=== PATIENT | female | born 1945 | race Caucasian/White ===

== ENCOUNTER 2020-02-08 10:40 | Inpatient (IN) | payer MEDICARE, OTHER ==
[~2020-02-08] VITALS: Ht 157.5 cm; Wt 50.7 kg
--- NOTE | ~2020-02-08 | OP ---
PATIENT NAME: CHARLES MOORE MEDICAL RECORD: [id number] :45 LOCATION:D.M2 D.2108 ADMISSION DATE:02/08/20 SURGEON: MARGARET MURRIETA MD DATE OF OPERATION: 02/10/2020 PREOPERATIVE DIAGNOSES: 1. End-stage renal disease without access for hemodialysis. 2. Anemia. POSTOPERATIVE DIAGNOSES: 1. End-stage renal disease without access for hemodialysis. 2. Anemia. PROCEDURES: 1. Insertion of right internal jugular HemoSplit catheter (tunneled cuffed dual-lumen hemodialysis catheter) under fluoroscopic guidance. 2. Immediate surgeon interpretation of the fluoroscopic images. SURGEON: Margaret Murrieta MD IRONWORKER WIRE FENCE ERECTOR: None. BLOOD LOSS: Minimal. ANESTHESIA: General. COMPLICATIONS: None. The risks, possible complications and alternatives to the procedure were explained to the patient. She elects to proceed. The discussion specifically included, but was not limited to, bleeding requiring emergency reoperation, infection, pneumothorax and great vessel injury. No radiologist was present for this procedure. Static fluoroscopic images were obtained and are interpreted by the surgeon. The surgeon interpretation of the radiographic images is dictated within the body of this operative note. OPERATIVE COURSE: The patient was conveyed the operating room electively on 02/10/2020. General anesthesia was induced by the anesthesia staff. The right neck and right chest were sterilely prepped and draped. Under ultrasonographic guidance, I percutaneously accessed the right internal jugular vein in an antegrade fashion. A guidewire passed easily. A skin incision was accomplished around the wire. A counterincision was accomplished in the right anterior superior infraclavicular chest. I tunneled a 19-cm HemoSplit catheter from the chest incision to the neck incision. Over the wire, I advanced dilators. I dilated up to a larger size. This was visualized under real time fluoroscopy. A dilator sheath was then advanced over the wire and this again was visualized under fluoroscopy. The dilator and wire were removed. The tips of the HemoSplit catheter was then advanced down through the sheath. The Peel-Away sheath was then removed. I then pulled back on the HemoSplit flange. Under fluoroscopy, there was no kinking or twisting of the HemoSplit catheter. The longest HemoSplit catheter tip appeared to be at the cavoatrial junction. There was no radiographic evidence of complication. No kinking or twisting of the HemoSplit catheter. OPERATIVE REPORT [id number] TAKEN,CHARLES NIEVES The neck incision was closed with interrupted intracuticular 3-0 Vicryls. The flange of the HemoSplit catheter was sutured to the underlying skin with 2-0 nylons. Both lumens of the HemoSplit catheter flushed easily and aspirated dark, nonpulsatile blood. I then topped off both lumens of the HemoSplit catheter with the appropriate amount of concentrated heparin. Sterile dressings were applied. The patient was then extubated and conveyed to post-anesthesia care unit where she was in stable condition. TRANSINT:[id number] Voice Confirmation ID: [id number] DOCUMENT ID: [id number] MARGARET MURRIETA MD CC: RAYSA DRAPER MD and MO RODRIGUEZ [id number] DICTATION DATE: 02/19/207 ANIMAL NUTRITIONIST: 02/19/20 1209 DIS IN 02/14/20 [facility] [address] [place] [address]
--- NOTE | 2020-02-08 11:30 | NUR ---
ARRIVES TO UNIT PER W/C, IV STARTED TO LFA WITH 1 STICK USING 20GA, ORDERS FOR 2 UNITS OF BLOOD
[2020-02-08 12:35] VITALS: BP 137/55
[2020-02-08] MEDS ORDERED: BAYER CHEWABLE81 MG PO (12:40)
[2020-02-08] MEDS ORDERED: TORSEMIDE10 MG (12:42)
[2020-02-08] MEDS ORDERED: JARDIANCE25 MG PO (12:43)
[2020-02-08] MEDS ORDERED: COREG12.5 MG PO (12:44)
[2020-02-08 12:46] VITALS: BP 137/55; BMI 19.6
[2020-02-08 12:50] VITALS: BP 150/57
[2020-02-08 15:07] LABS: BILIRUBIN NEGATIVE (NEGATIVE); GLUCOSE 250 mg/dL (NEGATIVE); KETONE NEGATIVE (NEGATIVE); NITRITE NEGATIVE (NEGATIVE); SPECIFIC GRAVITY 1.015 (1.005-1.020); UROBILINOGEN NORMAL (NORMAL)
[2020-02-08 15:08] LABS: BACTERIA FEW /hpf (NEGATIVE); EPITHELIAL CELLS 0-5 /hpf (0-5); RED CELLS - URINE 0-5 /hpf (0-5)
--- NOTE | 2020-02-08 15:11 | NUR ---
1ST UNIT OF BLOOD COMPLETED, XRAY AWARE
[2020-02-08 15:46] LABS: CREATININE - URINE 32.3 mg/dL (30-125); PRO/CRE RATIO URINE 5.8 mg/g; PROTEIN - URINE 188.4 mg/dL (0.0-11.9)
[2020-02-08 16:50] VITALS: BP 143/61
[2020-02-08 16:53] VITALS: BP 156/62
--- NOTE | 2020-02-08 17:14 | NUR ---
2ND UNIT OF BLOOD INFUSING, BAYRON WELL, CONT TO MONITOR
[2020-02-08 20:00] VITALS: BP 109/71
--- NOTE | 2020-02-08 20:00 | NUR ---
PATIENT RESTING IN BED. NO S/S OF ACUTE DISTRESS. NO C/O AT THIS TIME. PATIETN HAS LEFT FOREARM IV, SALINE LOC. IV IS PATENT WITHOUT REDNESS, SWELLING, OR TENDERNESS. PATIENT HAS TELEMETRY: 70 NORMAL SINUS. PATIENT IS UP WITH ASSIST TO THE BATHROOM. CALL LIGHT WITHIN REACH. WILL CONTINUE TO MONITOR.
[2020-02-09] VITALS (7 sets, daily range): BP systolic 125–171; BP diastolic 56–65; Ht 157.5 cm; Wt 50.7 kg
--- NOTE | 2020-02-09 00:52 | NUR ---
I have reviewed this patient and I concur with the Shift Assessment completed by the Licensed Practical Nurse today this shift.
[2020-02-09 06:50] LABS: ANION GAP 21.9 mmol/L (8-16); CARBON DIOXIDE 18.8 mmol/L (21.0-32.0); CREATININE - SERUM 6.6 mg/dL (0.6-1.3); PHOSPHOROUS 8.4 mg/dL (2.5-4.9); POTASSIUM - SERUM 4.7 mmol/L (3.5-5.1)
[2020-02-09 07:14] LABS: BASOPHILS 0.4 % (0-2); EOSINOPHILS 3.4 % (0-7); HEMATOCRIT 27.4 % (36.0-48.0); IMMATURE GRANULOCYTES 0.4 % (0-5); LYMPHOCYTES 9.7 % (15-50); MCHC 32.8 g/dL (31.0-37.0); MCV 91.3 fL (80.0-100.0); MEAN PLATELET VOLUME 9.3 fL (7.4-10.4); MONOCYTES 12.7 % (2-11); NEUTROPHILS 73.4 % (40-80); PLATELET COUNT 315 10x3/uL (130-400); RDW 16.3 % (11.5-14.5); WBC 6.8 10x3/uL (4.8-10.8)
--- NOTE | 2020-02-09 08:55 | NUR ---
SHE IS SETTING ON THE SIDE OF THE BED EATING BREAKFAST, HER IS AT THE BEDSIDE. THE BED ALARM IS ON AND THE CALL LIGHT WITHIN REACH.
--- NOTE | 2020-02-09 20:00 | NUR ---
PATIENT RESTING IN BED WATCHING TV. NO S/S OF ACUTE DISTRESS. NO C/O AT THIS TIME. PATIENT HAS A RIGHT FOREARM IV, SALINE LOC. IV IS PATENT WITHOUT REDNESS, SWELLING, OR TENDERNESS. PATIENT IS ON TELEMTRY: 69 NORMAL SINUS RYTHM. PATIENT IS UP WITH ASSIST TO THE BATHROOM. CALL LIGHT WITHIN REACH. BED ALARM ON. WILL CONTINUE TO MONITOR.
[2020-02-10] VITALS: BP 108/54; BP 131/67
--- NOTE | 2020-02-10 02:22 | NUR ---
I have reviewed this patient and I concur with the Shift Assessment completed by the Licensed Practical Nurse today this shift.
[2020-02-10 04:00] VITALS: BP 124/72
[2020-02-10 06:22] LABS: BASOPHILS 0.2 % (0-2); EOSINOPHILS 0.5 % (0-7); IMMATURE GRANULOCYTES 0.2 % (0-5); LYMPHOCYTES 9.5 % (15-50); MCH 29.8 pg (26.0-34.0); MCHC 32.6 g/dL (31.0-37.0); MCV 91.7 fL (80.0-100.0); MEAN PLATELET VOLUME 9.1 fL (7.4-10.4); MONOCYTES 9.9 % (2-11); NEUTROPHILS 79.7 % (40-80); PLATELET COUNT 331 10x3/uL (130-400); RDW 15.7 % (11.5-14.5); WBC 5.8 10x3/uL (4.8-10.8)
[2020-02-10 06:29] LABS: HEMATOCRIT 34.1 % (36.0-48.0); HEMOGLOBIN 11.1 g/dL (12-16); RBC 3.72 10x6/uL (4.00-5.40)
[2020-02-10 06:41] LABS: ANION GAP 18.9 mmol/L (8-16); CALCIUM 7.1 mg/dL (8.5-10.1); CARBON DIOXIDE 19.5 mmol/L (21.0-32.0); CREATININE - SERUM 6.7 mg/dL (0.6-1.3); POTASSIUM - SERUM 4.4 mmol/L (3.5-5.1)
--- NOTE | 2020-02-10 09:10 | NUR ---
RESTING IN BED, FAMILY IIN ROOM, NPO FOR SURGERY, CONT TO MONITOR
[2020-02-10 09:12] VITALS: BP 142/64
--- NOTE | 2020-02-10 10:38 | NUR ---
PT SKIN CLAMMY, SUGAR 45, 1/2 AMP D5 GIVEN AND SENT TO SURGERY, REPORT PASSED TO SURGERY STAFF
--- NOTE | 2020-02-10 10:45 | NUR ---
anesthesia accepted care of pt
--- NOTE | 2020-02-10 12:07 | NUR ---
DR ALVAREZ HERE TO SEE PT, DISCUSSED INR
[2020-02-10 13:06] VITALS: BP 130/57
--- NOTE | 2020-02-10 13:08 | NUR ---
ALERT AND OREINTED WITH DROWSINESS. O2 95 PERCENT ON ROOM Air DRESSING INTACT TO RIGHT UPPER CHEST WITH PRPESSURE APPLIED
[2020-02-10 15:00] VITALS: BP 119/57
--- NOTE | 2020-02-10 16:30 | NUR ---
PATIENT TAKEN TO DIALYSIS. STABLE AT THIS TIME WITH PRESSURE DRESSING TO HEMIPORT SITE TO RIGHT UPPER CHEST
[2020-02-10 20:00] VITALS: BP 144/58
--- NOTE | 2020-02-10 20:30 | NUR ---
PT BACK FROM DIALYSIS, PT DRSG TO RIGHT CHEST TRIALYSIS REINFORCED AT THIS TIME. SAND BAG PLACED ON RIGHT CHEST. PT RESP EVEN AND UNLABORED. NO DISTRESS NOTED, CL IN REACH, SR UP X 2.
[2020-02-11] VITALS: BP 133/54
[2020-02-11 04:00] VITALS: BP 137/63
--- NOTE | 2020-02-11 06:12 | NUR ---
I have reviewed this patient and I concur with the Shift Assessment completed by the Licensed Practical Nurse today this shift.
[2020-02-11 08:31] VITALS: BP 136/57
[2020-02-11 09:45] LABS: BASOPHILS 0.1 % (0-2); EOSINOPHILS 0 % (0-7); IMMATURE GRANULOCYTES 0.1 % (0-5); LYMPHOCYTES 6.2 % (15-50); MCH 29.4 pg (26.0-34.0); MCHC 31.5 g/dL (31.0-37.0); MCV 93.4 fL (80.0-100.0); MEAN PLATELET VOLUME 9.2 fL (7.4-10.4); MONOCYTES 8.7 % (2-11); NEUTROPHILS 84.9 % (40-80); PLATELET COUNT 306 10x3/uL (130-400); RDW 15.6 % (11.5-14.5); WBC 7.2 10x3/uL (4.8-10.8)
[2020-02-11 09:46] LABS: HEMATOCRIT 26.7 % (36.0-48.0); HEMOGLOBIN 8.4 g/dL (12-16); RBC 2.86 10x6/uL (4.00-5.40)
[2020-02-11 09:55] LABS: CALCIUM 7.3 mg/dL (8.5-10.1); POTASSIUM - SERUM 3.9 mmol/L (3.5-5.1)
[2020-02-11 09:57] LABS: CARBON DIOXIDE 26.9 mmol/L (21.0-32.0)
[2020-02-11 13:20] VITALS: BP 115/45
[2020-02-11 18:29] VITALS: BP 104/44
--- NOTE | 2020-02-11 20:10 | NUR ---
AWAKE,ALERT.COMPLIANTS OF MILD DISCOMFORT TO HEMOSPLINT AREA. TYLENOL GIVEN FOR RELIEF. SL TO RFA INTACT WITHOUT REDNESS OR EDEMA NOTED. DRESSING AROUND CHEST INTACT. CL IN REACH. ADRIENNE ALARM ON.
[2020-02-12 00:30] VITALS: BP 111/52
[2020-02-12 05:00] VITALS: BP 135/57
--- NOTE | 2020-02-12 06:07 | NUR ---
I have reviewed this patient and I concur with the Shift Assessment completed by the Licensed Practical Nurse today this shift.
--- NOTE | 2020-02-12 07:44 | NUR ---
REPORT RECIEVED, PT SITTING SEMI FOWLERS IN BED. RR EVEN AND UNLABORED ON RA. SHE HAS A R FA PIV THAT IS SL. SHE HAS A R CHEST HEMOSPLIT AND IS A RESERVE L ARM. HER R CHEST HEMOSPLIT IS WRAPED FROM THE BLEEDING THAT STARTED LAST NIGHT. BED LOCKED AND IN LOWEST POSITION, CALL LIGHT WITHIN REACH. WILL CTM
[2020-02-12 08:30] VITALS: BP 147/59
[2020-02-12 10:09] LABS: BASOPHILS 0.3 % (0-2); EOSINOPHILS 2.8 % (0-7); HEMATOCRIT 25.7 % (36.0-48.0); IMMATURE GRANULOCYTES 0.1 % (0-5); LYMPHOCYTES 10.6 % (15-50); MCH 29.4 pg (26.0-34.0); MCHC 31.1 g/dL (31.0-37.0); MCV 94.5 fL (80.0-100.0); MEAN PLATELET VOLUME 9.2 fL (7.4-10.4); NEUTROPHILS 74.2 % (40-80); PLATELET COUNT 281 10x3/uL (130-400); RBC 2.72 10x6/uL (4.00-5.40); RDW 15.6 % (11.5-14.5); WBC 7.3 10x3/uL (4.8-10.8)
[2020-02-12 10:18] LABS: ANION GAP 13.1 mmol/L (8-16); CALCIUM 7.2 mg/dL (8.5-10.1); CARBON DIOXIDE 26.8 mmol/L (21.0-32.0); CREATININE - SERUM 4.7 mg/dL (0.6-1.3); POTASSIUM - SERUM 3.9 mmol/L (3.5-5.1)
[2020-02-12 12:00] VITALS: BP 115/45; BP 139/54
--- NOTE | 2020-02-12 12:54 | NUR ---
Nutrition Follow-up: Pt reports good/fair appetite. States she ate ~50% of breakfast this AM but is not a big breakfast eater. Denies N/V, chewing/swallowing difficulties. Unsure of last BM. Noted plans for HD today. Diet: Renal ADA PO intake: 50-100% Wt: 107# (02/08) Labs noted: Na 134, K+ 3.9, Glu 110, Ca 7.2 Meds noted: Glucotrol, Pepcid, Zofran -Encourage PO intake and honor food preferences within diet restrictions. -Offer Nepro with meals. -Monitor wt. -RD following.
[2020-02-12 16:50] VITALS: BP 115/45
--- NOTE | 2020-02-12 17:57 | NUR ---
I have reviewed this patient and I concur with the Shift Assessment completed by the Licensed Practical Nurse today this shift.
--- NOTE | 2020-02-12 18:22 | NUR ---
PT RETURNED TO ROOM FROM DIALYSIS. WILL CTM
--- NOTE | 2020-02-12 19:39 | NUR ---
PT SITTING IN BED AWAKE ALERT AND ORIENTED x4. NO SIGNS OF DISTRESS NOTED. DYALYSIS NURSE IS AT BEDSIDE. IS ALSO AT BEDSIDE. CALL LIGHT AND OTHER PERSONAL ITEMS WITH INR EACH. WILL CONTIUE TO MNOITOR
[2020-02-12 20:00] VITALS: BP 150/54
[2020-02-13] VITALS (7 sets, daily range): BP systolic 126–151; BP diastolic 52–95
--- NOTE | 2020-02-13 00:20 | NUR ---
DOING ROUNDS PT SEEMS A LITTLE SLOW TO RESPONED. B/S TAKEN 40. PRN DEXTROSE 25 GIVEN VIA RIGHT WRIST IV. WILL CHECK BLOOD SUGAR AGAIN IN 5 MINS. RN IS AT BEDSIDE. WILL CONTINUE TO MONITOR
--- NOTE | 2020-02-13 00:31 | NUR ---
BLOOD SUGAR NOW 116. CRANBERY JUICE AND NIGHT SNACK GIVEN. WILL DO FREQUENT ROUNDS. CALL LIGHT AND OTHER PERSONAL ITEMS WITH IN REACH. WILL CONTINUE TO MONITOR
[2020-02-13 03:07] LABS: HEPATITIS C ANTIBODY 0.3 S/CO RAT (0.0-0.9)
--- NOTE | 2020-02-13 03:33 | NUR ---
PT LYING IN BED RESTING QUIETLY WITH EYES CLOSED. EASILY AWAKEN WITH VOICE STIMULATION. CALL LIGHT WITH IN REACH. WILL CONTINUE TO MONITOR
[2020-02-13 05:29] LABS: BASOPHILS 0.3 % (0-2); EOSINOPHILS 1.3 % (0-7); HEMATOCRIT 25.7 % (36.0-48.0); HEMOGLOBIN 7.9 g/dL (12-16); IMMATURE GRANULOCYTES 0.1 % (0-5); LYMPHOCYTES 8.8 % (15-50); MCHC 30.7 g/dL (31.0-37.0); MCV 94.5 fL (80.0-100.0); MONOCYTES 9.3 % (2-11); NEUTROPHILS 80.2 % (40-80); PLATELET COUNT 305 10x3/uL (130-400); RBC 2.72 10x6/uL (4.00-5.40); RDW 15.3 % (11.5-14.5); WBC 6.9 10x3/uL (4.8-10.8)
[2020-02-13 05:58] LABS: ANION GAP 11.1 mmol/L (8-16); CALCIUM 7.2 mg/dL (8.5-10.1); CARBON DIOXIDE 29.3 mmol/L (21.0-32.0); PHOSPHOROUS 4.4 mg/dL (2.5-4.9); POTASSIUM - SERUM 3.4 mmol/L (3.5-5.1)
[2020-02-13 06:01] LABS: CREATININE - SERUM 3.3 mg/dL (0.6-1.3)
--- NOTE | 2020-02-13 06:21 | NUR ---
I have reviewed this patient and I concur with the Shift Assessment completed by the Licensed Practical Nurse today this shift.
[2020-02-13] MEDS ORDERED: HYDRALAZINE HCL25 MG PO (06:48)
[2020-02-13] MEDS ORDERED: COZAAR25 MG PO (06:48)
[2020-02-13] MEDS ORDERED: PEPCID PO (06:49)
--- NOTE | 2020-02-13 07:41 | NUR ---
ALERT AND ORIENTED. LUNGS CLEAR BILATERALLY. HEART SOUNDS S1 AND S2 HEARD IN ALL BELLA. BOWEL SOUNDS ACTIVE X 4. IV TO RFA PATENT WITHOUT REDNESS. DRSG REMOVED FROM RIGHT HEMOSPLIT PER DR DRAPER FOR DISCHARGE THIS AM. NO BLEEDING NOTED. CLEANED AND NEW DRSG APPLIED PER STERILE PROCEDURE. TELEMETRY REMOVED AND RETURNED TO [facility] AT MONITORS. DENIES NEEDS. BED LOW. CALL GOVEA AND PERSONAL ITEMS IN REACH. WILL CONTINUE TO MONITOR.
--- NOTE | 2020-02-13 08:07 | MORECARE ---
CASE MANAGEMENT DISCHARGE SUMMARY PATIENT: CHARLES MOORE EZEQUIEL UNIT: [id number] ADM DATE: 02/08/20 AGE: 74 : 45 SEX: F ROOM/BED: D.2108 AUTHOR: CIARA THORNTON PHYSICIAN: REFERRING PHYSICIAN: MO RODRIGUEZ MD DATE OF SERVICE: 02/13/20 Discharge Plan Patient Name: CHARLES MOORE [facility] [facility] 1945 Planned Disposition: Anticipated Discharge Date: Discharge Date: Expected LOS: Initial Reviewer: [email or web address] Initial Review Date: 02/08/2020 Generated: 02/13/20 9:07 am Patient Name: CHARLES MOORE Page [phone] at 0807 All edits/amendments must be made on the electronic document DICTATION DATE: 02/13/20 0807 MOTION GRAPHICS DESIGNER: MARTHA 02/13/20 08 RPT#: [id number] DC DATE: STATUS: ADM IN [facility] [address] [place] [address] END OF REPORT
--- NOTE | 2020-02-13 08:20 | MORECARE ---
CASE MANAGEMENT DISCHARGE SUMMARY PATIENT: CHARLES MOORE UNIT: [id number] ADM DATE: 02/08/20 AGE: 74 : 45 SEX: F ROOM/BED: D.7299 AUTHOR: CIARA THORNTON PHYSICIAN: REFERRING PHYSICIAN: MO RODRIGUEZ MD DATE OF SERVICE: 02/13/20 Discharge Plan Patient Name: CHARLES MOORE Facility: [facility]:[place] : 1945 Planned Disposition: Anticipated Discharge Date: Discharge Date: Expected LOS: Initial Reviewer: [email or web address] Initial Review Date: 02/08/2020 Generated: 02/13/20 9:19 am Comments DCP- Discharge Planning Updated by [email or web address]: Maya Santoyo on 02/13/20 7:[address] Patient Name: CHARLES MOORE Admission Status: Elective Accout number: [id number] Admission Date: 02-08-2020 : 1945 Admission Diagnosis:OTHER FATIGUE Attending: MO RODRIGUEZ Current LOS: 5 Anticipated DC Date: Planned Disposition: Primary Insurance: MEDICARE A & B Discharge Planning Comments: CM met with patient to complete initial dc planning assessment. CM educated patient on the CM role and verbal consent given by patient to complete assessment. CM verified patient's address, phone number, and emergency contact phone numbers. Patient lives at home with her . at bedside during assessment. At discharge patient plans to return home and feels this is a safe discharge. CM discussed availability of home health, rehab services, and medical equipment. Patient denied known discharge needs at this time. [facility] declination signed for . CM met with patient to complete initial dc planning assessment. CM educated patient on the CM role and verbal consent given by patient to complete assessment. CM verified patient's address, phone number, and emergency contact phone numbers. Patient lives at with. At discharge patient plans to return and feels this is a safe discharge. CM discussed availability of home health, rehab services, and medical equipment. Patient denied known discharge needs at this time. Transportation provider at discharge will be . CM will continue to follow and will assist as needed with dc plans/needs. Transportation provider at discharge will be her . Pt will require an outpatient dialysis chair. Jalyn CM for dialysis is working on scheduling the OP chair time. Jalyn will call and provide the appointment times. CM will continue to follow and will assist as needed with dc plans/needs. Compensation Coordinator: Maya Santoyo Last DP export: 02/13/20 7:07 am Patient Name: CHARLES MOORE Page [phone] at 0820 All edits/amendments must be made on the electronic document DICTATION DATE: 02/13/20819 TRUCK DOCK MATERIAL MOVER: MARTHA 02/13/20819 RPT#: [id number] DC DATE: STATUS: ADM IN [facility] [address] [place] [address] END OF REPORT
--- NOTE | 2020-02-13 10:07 | NUR ---
SITTING IN CHAIR AT BEDSIDE. IN ROOM. DENIES NEEDS. WILL CONTINUE TO MONITOR.
[2020-02-13 10:48] LABS: % SATURATION 29 % (15-55); IRON 39 ug/dl (35-150); TOTAL IRON BIND CAPACITY 134 ug/dl (260-445); UNSAT IRON BIND CAPACITY 95 ug/dl (150-375)
[2020-02-13 11:34] LABS: THYROID STIMULATING HORMONE 1.76 uIU/mL (0.36-3.74)
--- NOTE | 2020-02-13 12:01 | NUR ---
PATIENT AND SPOUSE ARE MADE AWARE OF DISCHARGE HOLDUP PENDING HEPATITIS PANEL RESULTS. I ALSO CALLED THE DROP WIRER, SHANE AND MADE HER AWARE OF THIS. THIS INFORMATION CAME FROM VICKI PASCUAL.
[2020-02-13 12:10] LABS: ANTI-GLOMERULAR BASMENT MEMBRN 4 units (0-20)
--- NOTE | 2020-02-13 13:10 | NUR ---
3 OF LAB RESULTS BACK. I SENT THIS INFO TO VICKI ORTIZ. I PASSED THIS INFORMATION TO THE PATIENT, SPOUSE, AND PRIMARY NURSE - SOHEILA ESPINOZA.
[2020-02-13 15:11] LABS: ANA REFLEX - DIRECT Negative (Negative); ANCA - ANTIMYELOPEROXIDASE <9.0 U/mL (0.0-9.0); ANCA - ANTIPROTEINASE 3 <3.5 U/mL (0.0-3.5); ANCA - ATYPICAL <1:20 titer (Neg:<1:20); ANCA - CYTOPLASMIC <1:20 titer (Neg:<1:20); ANCA - PERINUCLEAR <1:20 titer (Neg:<1:20)
--- NOTE | 2020-02-13 15:34 | NUR ---
SPOKE WITH DR RODRIGUEZ TO NOTIFY THAT PATIENT'S HEP B ANTIBODY SCREEN IS STILL PENDING AND ASKED WHAT WOULD LIKE TO DO FAR DISCHARGE. STATES "THAT'S A DR DRAPER QUESTION. HE SAID SHE COULD DISCHARGE AND BE SEEN IN CLINIC TOMORROW. JUST WORK THAT OUT WITH THEM." DR DRAPER PAGED.
--- NOTE | 2020-02-13 15:41 | NUR ---
PATIENT AND MADE AWARE OF SITUATION AND THAT WAITING CALL BACK FROM [facility]. FRUSTRATED BUT UNDERSTANDING. DENY NEEDS. WILL CONTINUE TO MONITOR AND UPDATE.
--- NOTE | 2020-02-13 15:47 | NUR ---
VICKI PASCUAL TO CALL AND TALK TO BOTH THE PATIENT AND THE SPOUSE TO LET THEM KNOW THAT WE CAN NOT GET A CHAIR TIME UNTIL REST OF TESTS COME BACK.
--- NOTE | 2020-02-13 19:54 | NUR ---
PT SITTING UP IN IN CHAIR ALERT AND ORIENTED x4. NO SIGNS OR SYMPTOMS OF DISTRESS NOTED. RESPIRATIONS EVEN AND UNLABORED. PT HAS NO COMPLAINTS AT THIS TIME. CALL LIGHT AND OTHER PERSONAL ITEMS WITH IN REACH. WILL CONTINUE MONITOR
--- NOTE | 2020-02-14 01:39 | NUR ---
PT LYING IN BED AWAKE AND ALERT. PT HAS NO COMPLAINTS AT THIS TIME. BEDTIME SNACK PROVIDED. CALL LIGHT WITH IN REACH. WILL CONTINUE TO MONITOR
--- NOTE | 2020-02-14 04:04 | NUR ---
DURING ROUNDS FOUND THE PT WITH COLD SWEATS AND PT LARTHARGIC. CHECKED PT BLOOD SUGAR 35. PRN DEXTROSE GIVEN. PT IS STARTING TO WAKE. 2 CRANBERRY JUICES GIVEN AND SNACK. PT IS ALERT AND ORIENTED x4. RESPIRATIONS EVEN AND UNLABORED. PT HAS NO COMPLIANTS AT THIS TIME. CALL LIGHT AND OTHER PERSONAL ITEMS WITH INREACH. WILL DO FREQUENT ROUNDING ON PT. AUTOMOTIVE GLASS INSTALLER AT BEDSIDE. WILL CONTINUE TO MONITOR
[2020-02-14 04:34] VITALS: BP 190/72
[2020-02-14 06:53] LABS: ANION GAP 11.1 mmol/L (8-16); CARBON DIOXIDE 27.4 mmol/L (21.0-32.0); PHOSPHOROUS 4.7 mg/dL (2.5-4.9); POTASSIUM - SERUM 3.5 mmol/L (3.5-5.1)
[2020-02-14 06:56] LABS: BASOPHILS 0.2 % (0-2); EOSINOPHILS 2.5 % (0-7); HEMATOCRIT 22.6 % (36.0-48.0); IMMATURE GRANULOCYTES 0.6 % (0-5); LYMPHOCYTES 9.7 % (15-50); MCH 29.2 pg (26.0-34.0); MCHC 30.5 g/dL (31.0-37.0); MCV 95.8 fL (80.0-100.0); MEAN PLATELET VOLUME 9.1 fL (7.4-10.4); MONOCYTES 11.4 % (2-11); NEUTROPHILS 75.6 % (40-80); PLATELET COUNT 270 10x3/uL (130-400); RBC 2.36 10x6/uL (4.00-5.40); RDW 15.6 % (11.5-14.5); WBC 6.3 10x3/uL (4.8-10.8)
[2020-02-14 07:34] LABS: HEMOGLOBIN 6.9 g/dL (12-16)
--- NOTE | 2020-02-14 08:00 | NUR ---
PT SITTING UP IN BED, RR EVEN AND UNLABORED ON RA. DENIES NEEDS OR PAIN AT THIS TIME. CALL LIGHT WITHIN REACH. BED IN LOWEST POSITION. WILL CONTINE TO MONITOR.
--- NOTE | 2020-02-14 08:03 | HP ---
PATIENT: CHARLES MOORE MEDICAL RECORD: [id number] ACCOUNT: [id number] LOCATION:[address] : [birth year] ADMISSION DATE: 02/08/20 PCP: DEX BEGUM APRN HISTORY AND PHYSICAL EXAMINATION REASON FOR ADMISSION: Fatigue and shortness of breath. HISTORY OF PRESENT ILLNESS: The patient is a 74-year-old female who recently moved from [place] to [place] in October of this year. She has been followed by Dr. Gregg, hand tool filer there for chronic renal insufficiency and anemia of chronic disease. The patient apparently had deferred dialysis some time ago because her daughter was on a transplant list and she saw the complications she had with ports, etc., and therefore refused it. She states she is not sure what caused her renal failure. Nonetheless, she moved here, had not established with a doctor until she saw her ANGIOGRAPHY TECHNOLOGIST yesterday. She is noted to have hemoglobin of 6.8 and had been symptomatic with shortness of breath and fatigue. Her creatinine returned today at 6.8 as well. Reviewing labs from her prior physician in October, her BUN and creatinine were 104 and 5.65 with a gradual progression since the first of the year from 95 and 5.25. She has also exhibited anemia of chronic disease with low-iron saturation, low TIBC and low serum iron. Apparently has received EPO injections up until October. She also has a past history of non-STEMI myocardial infarction with 3-vessel PTCA and has been angina free since that time. She denies any history of GI bleeding or melena, but for nausea from her renal failure she has been taking Pepto-Bismol as well her stools would look dark at times. PAST MEDICAL HISTORY: AODM times 5 years, diabetic retinopathy, proteinuria with 915 mg of protein noted on last 24-hour urine, CAD post-non STEMI TN on 07/27/2016 to LAD, RCA and left main. Echo at that time showed an EF of 50% to 55% with grade I diastolic dysfunction, mild MR and mild TR. Essential hypertension, osteoarthritis, lumbar back pain. She also has history of MRSA infection in her foot, in 2011 history of herpes zoster, nonproliferative diabetic retinopathy. PAST SURGICAL HISTORY: She had foot surgery in 2018, had a benign mass removed from her breast remotely, coronary stents times 3 in 07/2016, had lumbar back surgery in 2011 and a cholecystectomy. FAMILY HISTORY: Unknown as she is adopted. 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 Lifelong nonsmoker, nondrinker. She has 3 children, 2 daughters, one with renal disease, on transplant list. ALLERGIES: PENICILLIN CAUSING RASH, SULFA CAUSING A RASH AND ALLERGY TO CONTRAST DYE. HOME MEDICATIONS: Which she has been partially noncompliant due to not having a provider in [place] are aspirin 81 mg a day, atorvastatin 80 mg in the evening, Coreg 12.5 mg 2 tablets b.i.d., clonidine 0.1 b.i.d. as needed for systolic over 170 or diastolic over 100, omeprazole 40 mg daily, nitroglycerin 0.4 sublingual p.r.n. chest pain, torsemide 100 mg p.o. daily, Colace 100 mg p.o. daily p.r.n., Glipizide XL 10 mg p.o. b.i.d., hydralazine 25 mg p.o. with food t.i.d., losartan 25 mg p.o. daily, methocarbamol 750 mg 2 tablets t.i.d. p.r.n. muscle spasm and low back, orphenadrine citrate ER 100 mg tablet extended release twice HISTORY AND PHYSICAL [id number] TAKEN,CHARLES EZEQUIEL daily p.r.n., Brilinta 60 mg tablets b.i.d. REVIEW OF SYSTEMS: GENERAL: She has been fatigued with poor appetite and mild nausea, some weight loss. HEENT: No recent visual change, sinus congestion, sore throat. RESPIRATORY: Mild short of breath on exertion. No cough or congestion or sputum production. CARDIAC: No exertional chest pain, claudication or edema. She has had exertional shortness of breath. GASTROINTESTINAL: She had nausea without vomiting, change in stools or blood per rectum. No history of peptic ulcer disease. History of cholecystectomy. GENITOURINARY: No incontinence or vaginal bleeding. Denies dysuria. History of recurrent UTIs. MUSCULOSKELETAL: Chronic lumbago without sciatica. INTEGUMENT: No recent rash or itching. PSYCHIATRIC: Denies depressed mood. NEUROLOGIC: No history of seizures, motor deficits or stroke. Carotid Doppler was negative in 2019. PHYSICAL EXAMINATION: GENERAL: The patient is alert, thin female in no acute distress. VITAL SIGNS: Her height is 5 feet 2 inches, weight 107.8 pounds, BMI is 19.7, sats 99% on room air, blood pressure 158/78, heart rate of 72 and regular. GENERAL: Alert and oriented. The patient is wearing a wig. EYES: Clear. Pupils reactive. Oropharynx shows she is missing several maxillary teeth on the right. NECK: No bruits or masses. CHEST: Clear with distant breath sounds. No wheeze, no rales. CARDIOVASCULAR: Regular rate and rhythm, without murmur. PMI is appropriate. ABDOMEN: Thin, soft, nontender. No organomegaly or bruits. EXTREMITIES: No CC&E. NEUROLOGICAL: Oriented to person, place, and time. Cranial nerves are intact. She has slight decreased sensation to touch in bottoms of both feet. PSYCHIATRIC: The patient's mood is appropriate and upbeat. OFFICE LABORATORY DATA: Shows a white count of 5700 with a normal diff, platelet count is 315,000, H&H of 6.7 and 21.2 respectively. CMP with glucose of 106, sodium 134, BUN of 96, creatinine of 6.68, GFR of 6.4. Cholesterol is normal. A1c is pending. Her history is that of having a hemoglobin in the mid-6 range. X-rays are currently pending, renal ultrasound and chest x-ray. ASSESSMENT: 1. Symptomatic anemia of chronic disease due to noncompliance. 2. Chronic renal insufficiency, stage V, the patient has refused dialysis refused dialysis in the past. 3. Essential hypertension. 4. Diabetic retinopathy. 5. Proteinuria. 6. Chronic low back pain. 7. History of atherosclerotic heart disease post non-ST segment elevation myocardial infarction in 2019 with 3-vessel coronary artery disease successfully stented. 8. Gastroesophageal reflux disease. HISTORY AND PHYSICAL [id number] TAKEN,CHARLES NIEVES PLAN: The patient will be admitted for transfusion, renal consult, renal ultrasound. We will attempt to convince the patient to consider dialysis. TRANSINT:[id number] Voice Confirmation ID: [id number] DOCUMENT ID: [id number] MO RODRIGUEZ MD at 0803 CC: [id number] DICTATION DATE: 02/08/20 1330 JEWELRY BEARING MAKER: 02/08/20 3903 ADM IN [facility] [address] [place] [id number]
[2020-02-14 09:00] VITALS: BP 157/61
--- NOTE | 2020-02-14 11:29 | MORECARE ---
CASE MANAGEMENT DISCHARGE SUMMARY PATIENT: CHARLES MOORE UNIT: [id number] ADM DATE: 02/08/20 AGE: 74 : 45 SEX: F ROOM/BED: D.2543 AUTHOR: HILLARY,DOC PHYSICIAN: REFERRING PHYSICIAN: MO RODRIGUEZ MD DATE OF SERVICE: 02/14/20 Discharge Plan Patient Name: CHARLES MOORE Facility: [facility]:[place] : 1945 Planned Disposition: Anticipated Discharge Date: Discharge Date: Expected LOS: Initial Reviewer: [email or web address] Initial Review Date: 02/08/2020 Generated: 02/14/20 12:29 pm Comments DCP- Discharge Planning Updated by [email or web address]: Snow Goins on 02/14/20 10:[address] Faxed Hepatitis antibody to Jalyn Ayan @[phone]. DCP- Discharge Planning Updated by [email or web address]: Maya Santoyo on 02/13/20 7:[address] Patient Name: CHARLES MOORE Admission Status: Elective Accout number: [id number] Admission Date: 02-08-2020 : 1945 Admission Diagnosis:OTHER FATIGUE Attending: MO RODRIGUEZ Current LOS: 5 Anticipated DC Date: Planned Disposition: Primary Insurance: MEDICARE A & B Discharge Planning Comments: CM met with patient to complete initial dc planning assessment. CM educated patient on the CM role and verbal consent given by patient to complete assessment. CM verified patient's address, phone number, and emergency contact phone numbers. Patient lives at home with her . at bedside during assessment. At discharge patient plans to return home and feels this is a safe discharge. CM discussed availability of home health, rehab services, and medical equipment. Patient denied known discharge needs at this time. [facility] declination signed for . CM met with patient to complete initial dc planning assessment. CM educated patient on the CM role and verbal consent given by patient to complete assessment. CM verified patient's address, phone number, and emergency contact phone numbers. Patient lives at with. At discharge patient plans to return and feels this is a safe discharge. CM discussed availability of home health, rehab services, and medical equipment. Patient denied known discharge needs at this time. Transportation provider at discharge will be . CM will continue to follow and will assist as needed with dc plans/needs. Transportation provider at discharge will be her . Pt will require an outpatient dialysis chair. Jalyn PATTEN for dialysis is working on scheduling the OP chair time. Jalyn will call and provide the appointment times. CM will continue to follow and will assist as needed with dc plans/needs. Director Of Emergency Nursing: Maya Santoyo Last DP export: 02/13/20 7:20 am Patient Name: CHARLES MOORE Page [phone] at 1129 All edits/amendments must be made on the electronic document DICTATION DATE: 02/14/20 112 EDI CONSULTANT: MARTHA 02/14/20 1129 RPT#: [id number] DC DATE: STATUS: ADM IN [facility] [address] [place] [address] END OF REPORT
[2020-02-14 15:11] LABS: ERYTHROPOIETIN 7.6 mIU/mL (2.6-18.5)
--- NOTE | 2020-02-14 15:19 | NUR ---
I RECEIVED PHONE CALL FROM EARLINE SAAB WHO STATES WE NEED OKAY FROM DR VAZQUEZ FOR D/C AND IF ANY NEED FOR OUTPATIENT FOLLOW UP. SHE STATES NO FOLLOW UP IS NEEDED AND DIALYSIS CAN FOLLOW FOR TRANSFUSION WITH DIALYSIS. I CALLED [facility] AND TOLD HER THIS AND SHE SAID PATIENT CAN GO. I CALLED DR RODRIGUEZ OFFICE FOR OKAY FOR DISCHARGE, NEW ORDERS RECEIVED. I CALLED VICKI WITH [facility] AND LET HER KNOW OF ALL THIS INFORMATION. SHE IS FAX US A CHAIR TIME FOR DISCHARGE.
[2020-02-14 15:43] VITALS: BP 159/44
--- NOTE | 2020-02-14 15:55 | NUR ---
1 UNIT PRBC STARTED. WS WNL. LINE IS PATENT.
--- NOTE | 2020-02-14 15:56 | NUR ---
I have reviewed this patient and I concur with the Shift Assessment completed by the Licensed Practical Nurse today this shift.
--- NOTE | 2020-02-14 16:00 | NUR ---
BLOOD INITIATED. PT TOLERATING WELL. IV LEAKING FROM SITE. IV D/C WITH CATHETER TIP INTACT. 20 G RESTARTED X1 STICK TO RIGHT FOREARM. BLOOD INFUSING.
--- NOTE | 2020-02-14 16:59 | NUR ---
Dialysis Coordinator: Accepted @ [facility] Wed/Wed/Wed Arrive @ 6:15 am for 6:30am on-time. Welcome letter faxed to EARLINE Adamson to give to patient. Pt expected in-center on 02/16/20. YENNY LONDON.
[2020-02-14 17:08] LABS: SPE - A/G RATIO 0.7 (0.7-1.7); SPE - ALBUMIN 2.4 g/dL (2.9-4.4); SPE - ALPHA-1 GLOBULIN 0.3 g/dL (0.0-0.4); SPE - ALPHA-2 GLOBULIN 1.1 g/dL (0.4-1.0); SPE - BETA GLOBULIN 0.9 g/dL (0.7-1.3); SPE - GAMMA GLOBULIN 1.2 g/dL (0.4-1.8); SPE - M-SPIKE Not Observed g/dL (Not Observed)
--- NOTE | 2020-02-14 19:45 | NUR ---
PT SITTING UP ON SIDE OF BED AWAKE ALERT AND ORIENTED x4. NO SIGNS OF DISTRESS NOTED. RESPIRATIONS EVEN AND UNLABORED. BLOOD TRANSFUSION STOPED @1930. PT TOLERATED WELL. IS AT BED SIDE. PT STATES THAT SHE WANTS TO GO HOME. PT DOES HAVE DISCHARGE ORDERS. WAITING ON LAB CBC DRAW. CALL LIGHT AND OTHER PERSONAL ITEMS WITH IN REACH. WILL CONTINUE TO MONITOR
[2020-02-14 21:07] LABS: BASOPHILS 0.1 % (0-2); EOSINOPHILS 1.5 % (0-7); IMMATURE GRANULOCYTES 0.3 % (0-5); LYMPHOCYTES 8.6 % (15-50); MCH 29.6 pg (26.0-34.0); MCHC 31.9 g/dL (31.0-37.0); MONOCYTES 7.8 % (2-11); NEUTROPHILS 81.7 % (40-80); PLATELET COUNT 253 10x3/uL (130-400); RDW 16.7 % (11.5-14.5)
[2020-02-14 21:16] LABS: HEMATOCRIT 31.3 % (36.0-48.0); MCV 92.6 fL (80.0-100.0); RBC 3.38 10x6/uL (4.00-5.40); WBC 8.9 10x3/uL (4.8-10.8)
--- NOTE | 2020-02-14 21:26 | NUR ---
PT DISCHARGED HOME TO . TRANSFERED VIA WHEELCHAIR ACCOMPLINED BY HOSPITAL STAFF.
--- NOTE | 2020-02-15 13:06 | MORECARE ---
CASE MANAGEMENT DISCHARGE SUMMARY PATIENT: CHARLES MOORE UNIT: [id number] ADM DATE: 02/08/20 AGE: 74 : 45 SEX: F ROOM/BED: D.1560 AUTHOR: HILLARY,DOC PHYSICIAN: REFERRING PHYSICIAN: MO RODRIGUEZ MD DATE OF SERVICE: 02/15/20 Discharge Plan Patient Name: CHARLES MOORE Facility: [facility]:[place] : 1945 Planned Disposition: Anticipated Discharge Date: Discharge Date: 02/14/2020 Expected LOS: Initial Reviewer: [email or web address] Initial Review Date: 02/08/2020 Generated: 02/15/20 2:05 pm Comments DCP- Discharge Planning Updated by [email or web address]: Snow Goins on 02/15/20 11:[address] 02/13: Patient has a HSD chair at 0615, M/W/F @[facility] to start first Op treatment on Wednesday. DCP- Discharge Planning Updated by [email or web address]: Snow Goins on 02/14/20 10:[address] Faxed Hepatitis antibody to Jalyn Botello @[phone]. DCP- Discharge Planning Updated by [email or web address]: Maya Santoyo on 02/13/20 7:[address] Patient Name: CHARLES MOORE Admission Status: Elective Accout number: [id number] Admission Date: 02-08-2020 : 1945 Admission Diagnosis:OTHER FATIGUE Attending: MO RODRIGUEZ Current LOS: 5 Anticipated DC Date: Planned Disposition: Primary Insurance: MEDICARE A & B Discharge Planning Comments: CM met with patient to complete initial dc planning assessment. CM educated patient on the CM role and verbal consent given by patient to complete assessment. CM verified patient's address, phone number, and emergency contact phone numbers. Patient lives at home with her . at bedside during assessment. At discharge patient plans to return home and feels this is a safe discharge. CM discussed availability of home health, rehab services, and medical equipment. Patient denied known discharge needs at this time. JUSTINO declination signed for . CM met with patient to complete initial dc planning assessment. CM educated patient on the CM role and verbal consent given by patient to complete assessment. CM verified patient's address, phone number, and emergency contact phone numbers. Patient lives at with. At discharge patient plans to return and feels this is a safe discharge. CM discussed availability of home health, rehab services, and medical equipment. Patient denied known discharge needs at this time. Transportation provider at discharge will be . CM will continue to follow and will assist as needed with dc plans/needs. Transportation provider at discharge will be her . Pt will require an outpatient dialysis chair. Jalyn PATTEN for dialysis is working on scheduling the OP chair time. Jalyn will call and provide the appointment times. CM will continue to follow and will assist as needed with dc plans/needs. Electrotyper: Maya Santoyo Coverage Notice Reviewer: [id number] - Snow Goins Notice Issued Date-Time: 02/14/2020 16:25 Notice Type: IM Discharge Notice Notice Delivered To: Family Member Relationship to Patient: Spouse Quality Head Name: Michel Moore Delivery Method: HAND - Hand Delivered Mervat Days: Prior Verbal Notification: Recipient Understood Notice: Yes Recipient Signature: Yes Med Rec Note Co-signed by Attending: Coverage Notice Comment: DC IMM signed by patient, original to chart. Decline a copy. Last DP export: 02/14/20 10:29 am Patient Name: CHARLES MOORE Page [phone] at 1306 All edits/amendments must be made on the electronic document DICTATION DATE: 02/15/20 1306 CURATOR OF MANUSCRIPTS: MARTHA 02/15/20 1306 RPT#: [id number] DC DATE:02/14/20 STATUS: DIS IN [place] [id number] [place] [address] END OF REPORT
--- NOTE | 2020-02-16 17:39 | MORECARE ---
CASE MANAGEMENT DISCHARGE SUMMARY PATIENT: CHARLES MOORE UNIT: [id number] ADM DATE: 02/08/20 AGE: 74 : 45 SEX: F ROOM/BED: D.2880 AUTHOR: HILLARY,DOC PHYSICIAN: REFERRING PHYSICIAN: MO RODRIGUEZ MD DATE OF SERVICE: 02/16/20 Discharge Plan Patient Name: CHARLES MOORE Facility: [facility]:[place] : 1945 Planned Disposition: Home Anticipated Discharge Date: 02/15/20 Discharge Date: 02/14/2020 Expected LOS: 7 Initial Reviewer: [email or web address] Initial Review Date: 02/08/2020 Generated: 02/16/20 6:39 pm Comments DCP- Discharge Planning Updated by [email or web address]: Snow Goins on 02/15/20 11:[address] 02/13: Patient has a HSD chair at 0615, M/W/F @[facility] to start first Op treatment on Wednesday. DCP- Discharge Planning Updated by [email or web address]: Snow Goins on 02/14/20 10:[address] Faxed Hepatitis antibody to Jalyn Botello @[phone]. DCP- Discharge Planning Updated by [email or web address]: Maya Santoyo on 02/13/20 7:[address] Patient Name: CHARLES MOORE Admission Status: Elective Accout number: [id number] Admission Date: 02-08-2020 : 1945 Admission Diagnosis:OTHER FATIGUE Attending: MO RODRIGUEZ Current LOS: 5 Anticipated DC Date: Planned Disposition: Primary Insurance: MEDICARE A & B Discharge Planning Comments: CM met with patient to complete initial dc planning assessment. CM educated patient on the CM role and verbal consent given by patient to complete assessment. CM verified patient's address, phone number, and emergency contact phone numbers. Patient lives at home with her . at bedside during assessment. At discharge patient plans to return home and feels this is a safe discharge. CM discussed availability of home health, rehab services, and medical equipment. Patient denied known discharge needs at this time. [facility] declination signed for . CM met with patient to complete initial dc planning assessment. CM educated patient on the CM role and verbal consent given by patient to complete assessment. CM verified patient's address, phone number, and emergency contact phone numbers. Patient lives at with. At discharge patient plans to return and feels this is a safe discharge. CM discussed availability of home health, rehab services, and medical equipment. Patient denied known discharge needs at this time. Transportation provider at discharge will be . CM will continue to follow and will assist as needed with dc plans/needs. Transportation provider at discharge will be her . Pt will require an outpatient dialysis chair. Jalyn PATTEN for dialysis is working on scheduling the OP chair time. Jalyn will call and provide the appointment times. CM will continue to follow and will assist as needed with dc plans/needs. Finance Administrator: Maya Santoyo Coverage Notice Reviewer: [email or web address] Christopher Goins Notice Issued Date-Time: 02/14/2020 16:25 Notice Type: IM Discharge Notice Notice Delivered To: Family Member Relationship to Patient: Spouse Stream Control Officer Name: Michel Moore Delivery Method: HAND - Hand Delivered Mervat Days: Prior Verbal Notification: Recipient Understood Notice: Yes Recipient Signature: Yes Med Rec Note Co-signed by Attending: Coverage Notice Comment: DC IMM signed by patient, original to chart. Decline a copy. Last DP export: 02/15/20 12:06 pm Patient Name: CHARLES MOORE Page [phone] at 1730 All edits/amendments must be made on the electronic document DICTATION DATE: 02/16/201738 COOK FRY: MARTHA 02/16/201738 RPT#: [id number] DC DATE:02/14/20 STATUS: DIS IN [facility] [address] [place] [address] END OF REPORT
== END 2020-02-14 21:35 | disposition home or self-care (01) | DRG 682 ==
LOC: D.OPS 10:40 → D.M2 12:03 → D.MS 12:03 → D.M2 02-10 11:54
PROVIDERS: Internal Medicine Hematology & Oncology; Internal Medicine Nephrology; ADMIT Family Medicine; ATTEND Family Medicine
PROC: 5A1D70Z Performance of Urinary Filtration, Intermittent, Less than 6 Hours Per Day (ICD-10-PCS; principal; 2020-02-09)
DX: I12.0 Hypertensive chronic kidney disease with stage 5 chronic kidney disease or end stage renal disease (principal); N18.6 End stage renal disease; N25.81 Secondary hyperparathyroidism of renal origin; E11.22 Type 2 diabetes mellitus with diabetic chronic kidney disease; I50.9 Heart failure, unspecified; D63.1 Anemia in chronic kidney disease; E78.5 Hyperlipidemia, unspecified; E11.65 Type 2 diabetes mellitus with hyperglycemia

== ENCOUNTER → 2020-05-06 11:05 | Outpatient (CLI) | payer MEDICARE, OTHER ==
[2020-02-09 22:41] VITALS: BMI 19.5
[~2020-05-06 11:05] MED LIST: BAYER CHEWABLE81 MG PO; COREG12.5 MG PO; COZAAR25 MG PO; HYDRALAZINE HCL25 MG PO; JARDIANCE25 MG PO; PEPCID PO; TORSEMIDE10 MG
== END | disposition home or self-care (01) ==
LOC: D.HCCECHO 11:05
PROVIDERS: ATTEND Internal Medicine Cardiovascular Disease
DX: I25.10 Atherosclerotic heart disease of native coronary artery without angina pectoris (principal)

== ENCOUNTER 2020-05-14 08:26 | Day surgery (SDC) | payer MEDICARE, OTHER ==
[~2020-05-14] VITALS: Ht 157.5 cm; Wt 46.7 kg
--- NOTE | ~2020-05-14 | OP ---
PATIENT NAME: CHARLES MOORE MEDICAL RECORD: [id number] :[birth year] LOCATION:[facility] ADMISSION DATE: SURGEON: GAGE FUENTES MD DATE OF OPERATION: 05/14/2020 REFERRED BY: Raysa Rogers MD PREOPERATIVE DIAGNOSIS: End-stage renal disease and dependence on renal dialysis. POSTOPERATIVE DIAGNOSES: End-stage renal disease and dependence on renal dialysis. OPERATION PERFORMED: Creation of a right proximal radial artery to cephalic vein; Monica type arteriovenous fistula at the antecubital fossa. SURGEON: Gage Fuentes MD ANESTHESIA: Regional nerve block plus MAC per JUNIOR BUYER. PREOPERATIVE NOTE: This 74-year-old white female patient is on dialysis now with a catheter and needs long-term access. She is brought to the operating room with plans to create a fistula in her right arm. Preoperative vein mapping indicated she is a not a candidate for percutaneous fistula and that the vessels on the right arm were better for fistula on the left. DESCRIPTION OF PROCEDURE: Under a regional block and MAC, the patient was placed in supine position, prepped and draped in a sterile manner. I examined her with ultrasound after applying nitroglycerin ointment to the intact skin of the arm and forearm. The patient had a very nice cephalic vein in the forearm with the radial artery too small to create a fistula. In the antecubital space, I noted that there were 2 arteries and follow this upwards and demonstrated the proximal origin of the radial artery at the mid humeral level. It was to this artery at the antecubital space that I made my anastomosis. A transverse incision was made and the median cubital cephalic vein was exposed and controlled with Silastic loops and the proximal radial artery was exposed and controlled with Silastic loops. Vein was opened and flushed proximally with heparinized saline. I attempted to disrupt the venous valves distally by passing a blunt 2 mm coronary artery dilator, but this resulted in perforation of the vein as demonstrated when I flushed the vein with heparinized saline. Subsequently, the vein was tied off with 3-0 Vicryl distal to the anastomotic site. The artery was occluded and opened and flushed proximally and distally with heparinized saline and a [id number] anastomosis was then carried out with continuous running 7-0 Prolene, which is a functional end-to-side fistula with the vein being ligated just distal to the anastomosis. The suture line was hemostatic and flow was excellent immediately upon release of the occluding loops. The wound and the suture line was treated still with fibrillar oxidized cellulose hemostatic material and kept under some gentle pressure with dry gauze until hemostasis was complete. The wound was irrigated very gently with Ancef - gentamicin solution and then closed with interrupted inverted 3-0 Vicryl and running intracuticular 4-0 Stratafix and Dermabond glue and it was dressed with Maxorb Ag, Tegaderm, and Cavilon skin prep. She was awakened and returned to the recovery room in stable condition. OPERATIVE REPORT [id number] TAKEN,CHARLES NIEVES Blood loss during the operation was zero. Essentially, none was replaced of course. Sponges, instruments, and needles were accounted for. No drain was used and no surgical specimen was submitted for histopathology. PLAN: The patient will go home today and return to see me in my office for followup next week. She is given a prescription for tramadol 50 mg 1 p.o. q.4 hours p.r.n. for pain, #20. TRANSINT:[id number] Voice Confirmation ID: [id number] DOCUMENT ID: [id number] GAGE FUENTES MD CC: RAYSA ROGERS MD [id number] DICTATION DATE: 05/14/20 1502 MOLD FORMS BUILDER: 05/14/20 1536 [facility] 05/14/20 [facility] [address] [place] [address]
[2020-05-14 08:43] LABS: BASOPHILS 0.5 % (0-2); EOSINOPHILS 2.6 % (0-7); HEMATOCRIT 34.5 % (36.0-48.0); HEMOGLOBIN 10.8 g/dL (12-16); IMMATURE GRANULOCYTES 0.1 % (0-5); LYMPHOCYTES 14.1 % (15-50); MCH 30.7 pg (26.0-34.0); MCHC 31.3 g/dL (31.0-37.0); MONOCYTES 10.5 % (2-11); NEUTROPHILS 72.2 % (40-80); PLATELET COUNT 239 10x3/uL (130-400); RBC 3.52 10x6/uL (4.00-5.40); RDW 14.8 % (11.5-14.5); WBC 7.8 10x3/uL (4.8-10.8)
[2020-05-14 08:51] LABS: ANION GAP 8.1 mmol/L (8-16); CALCIUM 8.2 mg/dL (8.5-10.1); CARBON DIOXIDE 30.5 mmol/L (21.0-32.0); CREATININE - SERUM 2.5 mg/dL (0.6-1.3); POTASSIUM - SERUM 3.6 mmol/L (3.5-5.1)
[2020-05-14 08:52] LABS: INR 1.01 (0.85-1.17); PROTIME 13.3 SECONDS (11.6-15.0)
[2020-05-14] MEDS ORDERED: TUMS X-STR300 MG PO (09:27)
[2020-05-14 09:56] VITALS: BP 187/94; Ht 157.5 cm; Wt 46.7 kg
[2020-05-14] MEDS ORDERED: ULTRAM50 MG PO (14:51)
== END 2020-05-14 16:00 | disposition home or self-care (01) ==
LOC: D.OPS 08:26
PROVIDERS: Surgery; ATTEND Internal Medicine Nephrology
DX: N18.6 End stage renal disease (principal); Z99.2 Dependence on renal dialysis